=== PATIENT | female | born 1985 ===

== ENCOUNTER 2024-03-17 15:04 | Outpatient (REF) | payer BC, SELFPAY | END 2024-03-17 15:05 | disposition home or self-care (01) | LOC: HO.SH 15:04 | PROVIDERS: Visit Provider Physician Assistant | DX: Z01.118 Encounter for examination of ears and hearing with other abnormal findings (principal); H90.41 Sensorineural hearing loss, unilateral, right ear, with unrestricted hearing on the contralateral side; H93.11 Tinnitus, right ear | CPT/HCPCS: 92557; 92567; 92588 ==